=== PATIENT | female | born 1990 | race Hispanic/Latino ===

== ENCOUNTER 2023-02-05 12:34 | Day surgery (SDC) | payer SELFPAY ==
[~2023-02-05 12:34] MED LIST: Promethazine HCl 25 MG/ML VIAL ONE; fentaNYL PF 100 MCG/2 ML SYRINGE ONE
[2023-02-05] MEDS ORDERED: Bupivacaine/Epinephrine 0.25% 30 ML VIAL ONE (12:48)
[2023-02-05] MEDS ORDERED: Lidocaine 1% PF 5 ML VIAL ONE (13:06)
[2023-02-05] MEDS ORDERED: PROPOFOL 200 MG/20 ML VIAL ONE (13:06)
[2023-02-05] MEDS ORDERED: Rocuronium Bromide 10 MG/ML (10ML VIAL) ONE (13:06)
[2023-02-05] MEDS ORDERED: Ondansetron PF 4 MG/2 ML Vial ONE (13:06)
[2023-02-05] MEDS ORDERED: NEOSTIGMINE 3 MG/3 ML SYR 3 MG/3 ML SYRINGE ONE (13:06)
[2023-02-05] MEDS ORDERED: Succinylcholine Chloride 100 MG/5 ML SYRINGE FS ONE (13:06)
[2023-02-05] MEDS ORDERED: Dexamethasone 20 MG/5 ML VIAL ONE (13:06)
[2023-02-05] MEDS ORDERED: Ketorolac Tromethamine 30 MG/ML VIAL ONE (13:06)
[2023-02-05] MEDS ORDERED: Glycopyrrolate 0.2 MG/ML 5 ML SYRINGE ONE (13:06)
[2023-02-05] MEDS ORDERED: FENTANYL 50 MCG/ML 1 ML VIAL ONE (14:25)
== END 2023-02-05 15:45 | disposition home or self-care (01) ==
LOC: SDC 12:34
PROVIDERS: ATTEND Surgery
PROC: 0FT44ZZ Resection of Gallbladder, Percutaneous Endoscopic Approach (ICD-10-PCS; principal; 2023-02-05)
DX: K80.12 Calculus of gallbladder with acute and chronic cholecystitis without obstruction (principal)
CPT/HCPCS: 88304; C1889; J1100; J1885; J2405; J2550; J2704; J3010